=== PATIENT | female | born 1960 | race Caucasian/White ===

== ENCOUNTER 2017-02-10 10:26 | Emergency (ER) | payer OTHER ==
[~2017-02-10] VITALS: Ht 162.6 cm; Wt 105.0 kg
[2017-02-10 11:11] LABS: HEMATOCRIT 40.7 % (34.6-47.8); HEMOGLOBIN 13.8 g/dL (11.7-16.4); WHITE BLOOD COUNT 13.4 x10^3/uL (3.4-10)
[2017-02-10 11:23] LABS: ASPARTATE AMINO TRANSFERASE 18 U/L (15-37); BLOOD UREA NITROGEN 14 mg/dL (7-18)
[2017-02-10] MEDS ORDERED: OMNIPAQUE 350 MG/ML, 100ML BOTTLE ONE (11:55)
[2017-02-10] MEDS ORDERED: ASPI-496 PO (12:49)
[2017-02-10] MEDS ORDERED: METF500T4 PO (12:49)
[2017-02-10] MEDS ORDERED: SERT100T PO (12:49)
[2017-02-10] MEDS ORDERED: LISI30TA4 PO (12:49)
[2017-02-10] MEDS ORDERED: ATEN25TA PO (12:49)
[2017-02-10] MEDS ORDERED: VIT1TABL46 PO (12:50)
[2017-02-10] MEDS ORDERED: OMEG1CAP57 PO (12:50)
[2017-02-10 13:16] VITALS: BP 140/63
== END 2017-02-10 13:19 | disposition home or self-care (01) ==
LOC: ED 13:00
DX: K92.2 Gastrointestinal hemorrhage, unspecified (principal); A09 Infectious gastroenteritis and colitis, unspecified; E11.9 Type 2 diabetes mellitus without complications; I10 Essential (primary) hypertension
CPT/HCPCS: 36415; 74177; 80053; 83690; 85025; 99285; Q9967